=== PATIENT | male | born 1955 | race Caucasian/White ===

== ENCOUNTER 2019-07-18 09:26 | Inpatient (IN) ==
[2019-07-18] MEDS ORDERED: ETOMIDATE 20 MG/10 ML VIAL IV STA (09:29)
[2019-07-18] MEDS ORDERED: ROCURONIUM 100 MG/10 ML VIAL IV STA (09:30)
[2019-07-18] MEDS ORDERED: PROPOFOL 1,000 MG/100 ML BOTTLE IV ONE (09:32)
[2019-07-18] MEDS ORDERED: SODIUM CHLORIDE 0.9% IV ONE (09:34)
[2019-07-18] MEDS ORDERED: HYDROCORTISONE 100 MG VIAL IV STA (09:36)
[2019-07-18] MEDS: PIPERACILLIN/TAZOBACTAM 3,375 MG in SODIUM CHLORIDE 0.9% 100 ML IV SCH ×2 (09:46→18:22)
[2019-07-18 09:48] LABS: Amorphous Crystals,Urine Occasional /HPF (Few); Apearance,Urine CLEAR (Clear); Bacteria,Urine Occasional /HPF (Few); Bilirubin,Urine Negative (Negative); Blood, Urine Negative (Negative); Glucose,Urine (UA) Negative (Negative); Ketones,Urine Negative (Negative); Nitrite,Urine Negative (Negative); Protein,Urine 100 MG/DL; RBC,Urine 1 /HPF (0-4); Squamous Epithelial Cell,Urine Occasional /HPF (0-10); Urine Color Straw (Yellow); Urine Specific Gravity 1.006 (1.001-1.035); Urine Urobilinogen < 2.0 EU/DL (0.2-1.0); WBC,Urine 1 /HPF (0-6)
[2019-07-18 09:52] LABS: ABG Base Excess -5.1 MMOL/L (-2.5-2.5); ABG Oxygen Saturation 87.2 % (95-100); ABG PCO2 68.3 MM HG (35-48); ABG PO2 66.3 MM HG (80-95)
[2019-07-18] MEDS: PROPOFOL 1,000 MG/100 ML BOTTLE IV SCH ×4 (09:52→21:55)
[2019-07-18 09:59] LABS: ABG PH 7.178 (7.35-7.45)
[2019-07-18] MEDS ORDERED: SODIUM BICARBONATE 50 MEQ/50 ML VIAL IV STA (10:00)
[2019-07-18 10:01] LABS: PT Patient Result 10.7 SECS (9.6-12.2); Partial Thromboplastin Time 23.1 SECS (20.8-36.0)
[2019-07-18 10:13] LABS: Alanine Aminotransferase 55 U/L (16-61); Albumin 3.4 G/DL (3.4-5.0); Alkaline Phosphatase 74 U/L (45-117); Aspartate Amino Transferase 27 U/L (0-37); Bilirubin,Total < 0.39 MG/DL (0.2-1.0); Blood Urea Nitrogen 25 MG/DL (7-18); Calcium 8.6 MG/DL (8.5-10.1); Estimated Glom Filtration Rate 124 ML/MIN; Glucose 275 MG/DL (74-106); Osmolality,Calculated 303.6 MOS/KG (273-304); Total Protein 7.2 G/DL (6.4-8.3)
[2019-07-18 10:17] LABS: Basophils # 0.1 10*3/uL (0.0-0.2); Basophils % 0.5 % (0.0-0.8); Eosinophils # 0.1 10*3/uL (0.0-0.87); Eosinophils % 0.6 % (0.00-10.9); Hematocrit 44.8 VOL% (42.0-52.0); Immature Granulocytes % 3.6 %; Immature Granulocytes Absolute 0.66 #; Lymphocytes # 2.5 10*3/uL (1.4-4.0); Lymphocytes % 13.2 % (21.2-54.2); Mean Corpuscular HGB Conc 30.1 GM/DL (32-36); Mean Platelet Volume 10.9 FL (9.6-12.0); Monocytes % 9.9 % (1.7-12.7); NRBC # 0.11 10*3/uL; Neutrophils % 72.2 % (38.7-73.9); Platelet Count 350 T/CUMM (130-400); Red Blood Count 4.35 MC/CUMM (3.8-5.5); Red Cell Distribution Width 15.2 % (9.3-17.3); White Blood Count 18.5 T/CUMM (4-12)
[2019-07-18 10:21] LABS: Hemoglobin 13.5 GM/DL (14.0-18.0)
[2019-07-18 10:24] LABS: Atypical Lymphocytes Few; Band Neutrophils 2 % (0-10); Eosinophils 1 % (0-10); Lymphocytes 14 % (20-55); Nucleated Red Blood Cells 1 (0-5); Segmented Neutrophils 72 % (50-85); Total Cells Counted 100
[2019-07-18 10:25] LABS: Macrocytosis Slight; Platelet Estimate Normal
[2019-07-18] MEDS ORDERED: DOCUSATE SODIUM 100 MG CAPSULE PO PRN (10:32)
[2019-07-18] MEDS ORDERED: ONDANSETRON 4 MG/2 ML VIAL IV PRN (10:32)
[2019-07-18] MEDS ORDERED: ACETAMINOPHEN 325 MG TABLET PO PRN (10:32)
[2019-07-18] MEDS ORDERED: ALBUTEROL/IPRATROPIUM 3 ML NEB RESP TX PRN (10:32)
[2019-07-18] MEDS ORDERED: ALBUTEROL 2.5 MG/3 ML NEB RESP TX PRN (10:32)
[2019-07-18] MEDS ORDERED: GLUCAGON 1 MG VIAL IM PRN (10:40)
[2019-07-18] MEDS ORDERED: DEXTROSE 50% 25 GM/50 ML VIAL IV PRN (10:40)
[2019-07-18] MEDS ORDERED: ETOMIDATE 20 MG/10 ML VIAL IV ONE (10:48)
[2019-07-18] MEDS ORDERED: ROCURONIUM 100 MG/10 ML VIAL IV ONE (10:48)
[2019-07-18] MEDS: FUROSEMIDE 40 MG/4 ML VIAL IV SCH ×2 (11:04→22:54)
[2019-07-18 11:08] LABS: Risk Ratio 6.25; VLDL CHOLESTEROL 44.6 MG/DL
[2019-07-18] MEDS: NITROGLYCERIN 2% OINT 1 INCH/GM PACK TOP SCH ×2 (13:42→18:22)
[2019-07-18] MEDS: INSULIN LISPRO 100 UNIT/ML SUBCUT SCH ×2 (13:51→18:22)
[2019-07-18] MEDS: methylPREDNISolone SOD SUC 40 MG/1 ML VIAL IV SCH ×2 (15:45→20:10)
[2019-07-18 17:08] LABS: ABG Base Excess 6.4 MMOL/L (-2.5-2.5); ABG HCO3 30.3 MMOL/L (20-26); ABG Oxygen Saturation 98.2 % (95-100); ABG PCO2 40.7 MM HG (35-48); ABG PH 7.482 (7.35-7.45); ABG TCO2 26.3 MMOL/L (23-27); Allen Test Positive; Pt O2 Delivery Device Ventilator
[2019-07-18] MEDS: SOTALOL 80 MG TABLET PO SCH (20:10)
[2019-07-18] MEDS: APIXABAN 5 MG TABLET PO SCH (20:10)
[2019-07-18] MEDS: carvediloL 25 MG TABLET PO SCH (20:10)
[2019-07-18] MEDS: INSULIN GLARGINE 100 UNIT/ML SUBCUT SCH (20:12)
[2019-07-19] MEDS: INSULIN LISPRO 100 UNIT/ML SUBCUT SCH ×4 (00:05→18:28)
[2019-07-19] MEDS: NITROGLYCERIN 2% OINT 1 INCH/GM PACK TOP SCH ×4 (00:06→18:12)
[2019-07-19] MEDS: PROPOFOL 1,000 MG/100 ML BOTTLE IV SCH ×10 (00:11→22:22)
[2019-07-19] MEDS: MORPHINE 4 MG/1 ML VIAL IV PRN (00:40)
[2019-07-19] MEDS ORDERED: hydrALAZINE 20 MG/1 ML VIAL IV PRN (01:17)
[2019-07-19] MEDS: methylPREDNISolone SOD SUC 40 MG/1 ML VIAL IV SCH ×4 (02:15→20:21)
[2019-07-19] MEDS: PIPERACILLIN/TAZOBACTAM 3,375 MG in SODIUM CHLORIDE 0.9% 100 ML IV SCH ×3 (02:15→18:28)
[2019-07-19 02:56] LABS: Calcium 8.9 MG/DL (8.5-10.1); Osmolality,Calculated 300.6 MOS/KG (273-304)
[2019-07-19 03:21] LABS: Prealbumin 25.3 MG/DL (20-40)
[2019-07-19 03:24] LABS: Basophils % 0.1 % (0.0-0.8); Hematocrit 42.5 VOL% (42.0-52.0); Hemoglobin 13.5 GM/DL (14.0-18.0); Immature Granulocytes % 1.3 %; Immature Granulocytes Absolute 0.22 #; Lymphocytes # 0.5 10*3/uL (1.4-4.0); Lymphocytes % 2.8 % (21.2-54.2); Mean Corpuscular HGB Conc 31.8 GM/DL (32-36); Mean Corpuscular Volume 97.5 FL (87-102); Mean Platelet Volume 10.7 FL (9.6-12.0); Monocytes % 4.3 % (1.7-12.7); Neutrophils % 91.5 % (38.7-73.9); Platelet Count 337 T/CUMM (130-400); Red Blood Count 4.36 MC/CUMM (3.8-5.5); White Blood Count 16.6 T/CUMM (4-12)
[2019-07-19 03:49] LABS: Hypochromasia 1+; Lymphocytes 3 % (20-55); Platelet Estimate Adequate; Segmented Neutrophils 93 % (50-85); Total Cells Counted 100
[2019-07-19 03:50] LABS: Macrocytosis Slight
[2019-07-19 04:11] LABS: ABG Base Excess 6.4 MMOL/L (-2.5-2.5); ABG HCO3 30.2 MMOL/L (20-26); ABG Oxygen Saturation 99.5 % (95-100); ABG PCO2 27.4 MM HG (35-48); ABG TCO2 23.4 MMOL/L (23-27); Allen Test Positive; Pt O2 Delivery Device Ventilator
[2019-07-19 04:28] LABS: ABG PH 7.604 (7.35-7.45)
[2019-07-19] MEDS: POTASSIUM CHLORIDE RIDER 10 MEQ in PREMIX 1 EACH IV PRN ×3 (04:35→06:34)
[2019-07-19 07:33] LABS: ABG Base Excess 2.9 MMOL/L (-2.5-2.5); ABG HCO3 25.5 MMOL/L (20-26); ABG Oxygen Saturation 97.3 % (95-100); ABG PCO2 32.3 MM HG (35-48); ABG PH 7.515 (7.35-7.45); ABG PO2 100.1 MM HG (80-95); ABG TCO2 26.5 MMOL/L (23-27); Allen Test Positive; Pt O2 Delivery Device Ventilator
[2019-07-19] MEDS: amLODIPine 10 MG TABLET PO SCH (08:37)
[2019-07-19] MEDS: APIXABAN 5 MG TABLET PO SCH (08:37)
[2019-07-19] MEDS: LIOTHYRONINE 25 MCG TABLET PO SCH (08:37)
[2019-07-19] MEDS: LEVOTHYROXINE 100 MCG TABLET PO SCH (08:37)
[2019-07-19] MEDS: FENOFIBRATE 145 MG TABLET PO SCH (08:37)
[2019-07-19] MEDS: ATORVASTATIN 20 MG TABLET PO SCH (08:37)
[2019-07-19] MEDS: PANTOPRAZOLE 40 MG TABLET PO SCH (08:38)
[2019-07-19] MEDS: LISINOPRIL 20 MG TABLET PO SCH (08:38)
[2019-07-19] MEDS: carvediloL 25 MG TABLET PO SCH ×2 (08:38→20:20)
[2019-07-19] MEDS: SOTALOL 80 MG TABLET PO SCH ×2 (08:39→20:20)
[2019-07-19] MEDS ORDERED: ASPIRIN EC 81 MG TABLET PO SCH (09:00)
[2019-07-19] MEDS: FUROSEMIDE 40 MG/4 ML VIAL IV SCH ×2 (11:38→22:20)
[2019-07-19 15:10] LABS: Hematocrit 36.1 VOL% (42.0-52.0); Hemoglobin 11.3 GM/DL (14.0-18.0)
[2019-07-19] MEDS: INSULIN GLARGINE 100 UNIT/ML SUBCUT SCH (20:20)
[2019-07-19 22:28] LABS: Hematocrit 31.8 VOL% (42.0-52.0); Hemoglobin 10.1 GM/DL (14.0-18.0)
[2019-07-20] MEDS: INSULIN LISPRO 100 UNIT/ML SUBCUT SCH ×4 (00:24→18:20)
[2019-07-20] MEDS: NITROGLYCERIN 2% OINT 1 INCH/GM PACK TOP SCH ×2 (00:24→06:19)
[2019-07-20] MEDS: MORPHINE 4 MG/1 ML VIAL IV PRN (02:40)
[2019-07-20] MEDS: PROPOFOL 1,000 MG/100 ML BOTTLE IV SCH ×8 (02:42→21:58)
[2019-07-20] MEDS: methylPREDNISolone SOD SUC 40 MG/1 ML VIAL IV SCH ×4 (02:58→20:29)
[2019-07-20] MEDS: PIPERACILLIN/TAZOBACTAM 3,375 MG in SODIUM CHLORIDE 0.9% 100 ML IV SCH ×3 (03:01→18:19)
[2019-07-20 03:38] LABS: ABG Base Excess 2.9 MMOL/L (-2.5-2.5); ABG HCO3 25.4 MMOL/L (20-26); ABG Oxygen Saturation 98.3 % (95-100); ABG PCO2 31.6 MM HG (35-48); ABG PH 7.523 (7.35-7.45); ABG PO2 212.5 MM HG (80-95); ABG TCO2 26.4 MMOL/L (23-27); Allen Test Positive; Pt O2 Delivery Device Ventilator
[2019-07-20 06:18] LABS: Hematocrit 32.7 VOL% (42.0-52.0); Hemoglobin 10.2 GM/DL (14.0-18.0)
[2019-07-20] MEDS ORDERED: LACTATED RINGERS 1,000 ML IV SCH (08:00)
[2019-07-20] MEDS ORDERED: NITROGLYCERIN 2% OINT 1 INCH/GM PACK TOP PRN (08:20)
[2019-07-20] MEDS ORDERED: FUROSEMIDE 40 MG/4 ML VIAL IV ONE (08:38)
[2019-07-20] MEDS: LEVOTHYROXINE 100 MCG VIAL IV SCH (09:13)
[2019-07-20 10:24] LABS: Basophils % 0.1 % (0.0-0.8); Hematocrit 33.9 VOL% (42.0-52.0); Hemoglobin 10.6 GM/DL (14.0-18.0); Immature Granulocytes Absolute 0.16 #; Lymphocytes # 0.4 10*3/uL (1.4-4.0); Lymphocytes % 2.5 % (21.2-54.2); Mean Corpuscular HGB Conc 31.3 GM/DL (32-36); Mean Corpuscular Volume 99.4 FL (87-102); Mean Platelet Volume 10.8 FL (9.6-12.0); Neutrophils % 88.4 % (38.7-73.9); Platelet Count 252 T/CUMM (130-400); Red Blood Count 3.41 MC/CUMM (3.8-5.5); Red Cell Distribution Width 15.2 % (9.3-17.3); White Blood Count 16.4 T/CUMM (4-12)
[2019-07-20] MEDS: ATORVASTATIN 20 MG TABLET PO SCH (10:44)
[2019-07-20] MEDS: MULTIVITAMIN LIQUID (CENTRUM) 60 ML BOTTLE PO SCH (10:44)
[2019-07-20] MEDS: LIOTHYRONINE 25 MCG TABLET PO SCH (10:44)
[2019-07-20] MEDS: amLODIPine 10 MG TABLET PO SCH (10:45)
[2019-07-20] MEDS: LISINOPRIL 20 MG TABLET PO SCH (10:45)
[2019-07-20] MEDS: PANTOPRAZOLE 40 MG TABLET PO SCH (10:45)
[2019-07-20] MEDS: FENOFIBRATE 145 MG TABLET PO SCH (10:45)
[2019-07-20 10:49] LABS: Calcium 8.1 MG/DL (8.5-10.1); Osmolality,Calculated 303.7 MOS/KG (273-304)
[2019-07-20 11:09] LABS: Ovalocytes Slight; Platelet Estimate Normal; Polychromasia Slight; Segmented Neutrophils 91 % (50-85); Tear Drop Cells Slight; Total Cells Counted 100
[2019-07-20] MEDS: FUROSEMIDE 40 MG/4 ML VIAL IV SCH ×2 (11:13→22:48)
[2019-07-20] MEDS: carvediloL 25 MG TABLET PO SCH ×2 (11:28→20:29)
[2019-07-20] MEDS: POTASSIUM CHLORIDE RIDER 10 MEQ in PREMIX 1 EACH IV PRN ×8 (11:29→22:47)
[2019-07-20] MEDS: INSULIN GLARGINE 100 UNIT/ML SUBCUT SCH (20:30)
[2019-07-21] MEDS: INSULIN LISPRO 100 UNIT/ML SUBCUT SCH ×4 (00:31→17:50)
[2019-07-21] MEDS: POTASSIUM CHLORIDE RIDER 10 MEQ in PREMIX 1 EACH IV PRN ×5 (00:32→17:18)
[2019-07-21] MEDS: PROPOFOL 1,000 MG/100 ML BOTTLE IV SCH ×8 (00:49→22:25)
[2019-07-21] MEDS: methylPREDNISolone SOD SUC 40 MG/1 ML VIAL IV SCH ×3 (02:36→21:17)
[2019-07-21] MEDS: PIPERACILLIN/TAZOBACTAM 3,375 MG in SODIUM CHLORIDE 0.9% 100 ML IV SCH ×3 (02:38→18:25)
[2019-07-21 04:29] LABS: ABG HCO3 28.8 MMOL/L (20-26); ABG PCO2 35.5 MM HG (35-48); ABG PH 7.506 (7.35-7.45); ABG PO2 62.6 MM HG (80-95); ABG TCO2 24.7 MMOL/L (23-27); Pt O2 Delivery Device Ventilator
[2019-07-21 06:12] LABS: Basophils % 0.1 % (0.0-0.8); Hematocrit 37.5 VOL% (42.0-52.0); Hemoglobin 11.5 GM/DL (14.0-18.0); Immature Granulocytes % 1.2 %; Immature Granulocytes Absolute 0.18 #; Lymphocytes # 0.5 10*3/uL (1.4-4.0); Lymphocytes % 3.2 % (21.2-54.2); Mean Corpuscular HGB Conc 30.7 GM/DL (32-36); Mean Corpuscular Volume 100.8 FL (87-102); Mean Platelet Volume 11.2 FL (9.6-12.0); Monocytes % 8.3 % (1.7-12.7); Neutrophils % 87.2 % (38.7-73.9); Platelet Count 242 T/CUMM (130-400); Red Blood Count 3.72 MC/CUMM (3.8-5.5); White Blood Count 14.6 T/CUMM (4-12)
[2019-07-21] MEDS: LEVOTHYROXINE 100 MCG VIAL IV SCH (06:16)
[2019-07-21 06:42] LABS: Calcium 8.3 MG/DL (8.5-10.1); Osmolality,Calculated 302.7 MOS/KG (273-304)
[2019-07-21 06:55] LABS: Lymphocytes 2 % (20-55); Segmented Neutrophils 90 % (50-85); Total Cells Counted 100
[2019-07-21 06:56] LABS: Anisocytosis Slight; Macrocytosis Slight; Platelet Estimate Normal
[2019-07-21 06:57] LABS: Polychromasia Slight; Stomatocytes Slight; Tear Drop Cells Few
[2019-07-21] MEDS: amLODIPine 10 MG TABLET PO SCH (10:01)
[2019-07-21] MEDS: POTASSIUM CHLORIDE 20 MEQ/15 ML UDCUP PO SCH ×2 (10:01→21:17)
[2019-07-21] MEDS: carvediloL 25 MG TABLET PO SCH ×3 (10:01→21:17)
[2019-07-21] MEDS: LIOTHYRONINE 25 MCG TABLET PO SCH (10:01)
[2019-07-21] MEDS: ATORVASTATIN 20 MG TABLET PO SCH (10:01)
[2019-07-21] MEDS: MULTIVITAMIN LIQUID (CENTRUM) 60 ML BOTTLE PO SCH (10:01)
[2019-07-21] MEDS: LISINOPRIL 20 MG TABLET PO SCH (10:02)
[2019-07-21] MEDS: FENOFIBRATE 145 MG TABLET PO SCH (10:02)
[2019-07-21] MEDS: PANTOPRAZOLE 40 MG VIAL IV SCH (11:59)
[2019-07-21] MEDS: FUROSEMIDE 40 MG/4 ML VIAL IV SCH (12:00)
[2019-07-21 12:15] LABS: Allen Test Positive; Pt O2 Delivery Device Ventilator
[2019-07-21 12:19] LABS: ABG Base Excess 4.5 MMOL/L (-2.5-2.5); ABG HCO3 28.2 MMOL/L (20-26); ABG Oxygen Saturation 88.6 % (95-100); ABG PCO2 36.9 MM HG (35-48); ABG PH 7.487 (7.35-7.45); ABG PO2 52.8 MM HG (80-95); ABG TCO2 24.9 MMOL/L (23-27)
[2019-07-21] MEDS ORDERED: AMIODARONE INJ 450 MG in DEXTROSE 5% 241 ML IV SCH (18:30)
[2019-07-21] MEDS: DORNASE ALFA 2.5 MG/2.5 ML VIAL RESP TX SCH (19:46)
[2019-07-21] MEDS: INSULIN GLARGINE 100 UNIT/ML SUBCUT SCH (21:17)
[2019-07-21] MEDS: GLIMEPIRIDE 4 MG TABLET PO SCH (21:17)
[2019-07-22] MEDS: INSULIN LISPRO 100 UNIT/ML SUBCUT SCH ×4 (00:28→18:25)
[2019-07-22] MEDS: FUROSEMIDE 40 MG/4 ML VIAL IV SCH ×2 (00:29→10:47)
[2019-07-22] MEDS: PROPOFOL 1,000 MG/100 ML BOTTLE IV SCH ×6 (00:32→17:41)
[2019-07-22] MEDS: PIPERACILLIN/TAZOBACTAM 3,375 MG in SODIUM CHLORIDE 0.9% 100 ML IV SCH ×3 (02:44→17:41)
[2019-07-22] MEDS: AMIODARONE INJ 450 MG in DEXTROSE 5% 241 ML IV SCH ×2 (03:57→16:49)
[2019-07-22 04:33] LABS: ABG Base Excess 4.1 MMOL/L (-2.5-2.5); ABG HCO3 27.8 MMOL/L (20-26); ABG Oxygen Saturation 95.3 % (95-100); ABG PCO2 38.4 MM HG (35-48); ABG PH 7.478 (7.35-7.45); ABG PO2 79.7 MM HG (80-95); Allen Test Positive; Pt O2 Delivery Device Ventilator
[2019-07-22 05:38] LABS: Basophils % 0.1 % (0.0-0.8); Hematocrit 35.4 VOL% (42.0-52.0); Hemoglobin 11.3 GM/DL (14.0-18.0); Immature Granulocytes % 1.8 %; Immature Granulocytes Absolute 0.21 #; Lymphocytes # 0.4 10*3/uL (1.4-4.0); Mean Corpuscular HGB Conc 31.9 GM/DL (32-36); Mean Corpuscular Volume 97.5 FL (87-102); Mean Platelet Volume 11.3 FL (9.6-12.0); Monocytes % 8.3 % (1.7-12.7); Neutrophils % 86.8 % (38.7-73.9); Platelet Count 264 T/CUMM (130-400); Red Blood Count 3.63 MC/CUMM (3.8-5.5); Red Cell Distribution Width 14.6 % (9.3-17.3)
[2019-07-22 05:48] LABS: Osmolality,Calculated 307.6 MOS/KG (273-304)
[2019-07-22 06:13] LABS: Anisocytosis 1+; Lymphocytes 4 % (20-55); Platelet Estimate Adequate; Segmented Neutrophils 88 % (50-85); Total Cells Counted 100
[2019-07-22] MEDS: LEVOTHYROXINE 100 MCG VIAL IV SCH (06:23)
[2019-07-22] MEDS: POTASSIUM CHLORIDE RIDER 10 MEQ in PREMIX 1 EACH IV PRN ×3 (07:00→09:00)
[2019-07-22] MEDS: DORNASE ALFA 2.5 MG/2.5 ML VIAL RESP TX SCH ×2 (08:11→19:34)
[2019-07-22] MEDS: LIOTHYRONINE 25 MCG TABLET PO SCH (10:06)
[2019-07-22] MEDS: GLIMEPIRIDE 4 MG TABLET PO SCH ×2 (10:06→21:49)
[2019-07-22] MEDS: carvediloL 25 MG TABLET PO SCH ×2 (10:06→21:49)
[2019-07-22] MEDS: MULTIVITAMIN LIQUID (CENTRUM) 60 ML BOTTLE PO SCH (10:06)
[2019-07-22] MEDS: POTASSIUM CHLORIDE 20 MEQ/15 ML UDCUP PO SCH ×2 (10:07→21:50)
[2019-07-22] MEDS: FENOFIBRATE 145 MG TABLET PO SCH (10:07)
[2019-07-22] MEDS: amLODIPine 10 MG TABLET PO SCH (10:07)
[2019-07-22] MEDS: ATORVASTATIN 20 MG TABLET PO SCH (10:07)
[2019-07-22] MEDS: PANTOPRAZOLE 40 MG VIAL IV SCH (10:07)
[2019-07-22] MEDS: LISINOPRIL 20 MG TABLET PO SCH (10:07)
[2019-07-22] MEDS: methylPREDNISolone SOD SUC 40 MG/1 ML VIAL IV SCH ×2 (10:08→21:50)
[2019-07-22] MEDS: metOLazone 5 MG TABLET PO SCH (10:47)
[2019-07-22] MEDS: SPIRONOLACTONE 25 MG TABLET PO SCH (10:47)
[2019-07-22] MEDS: metFORMIN 500 MG TABLET PO SCH (17:41)
[2019-07-22] MEDS: ALBUTEROL/IPRATROPIUM 3 ML NEB RESP TX SCH (19:34)
[2019-07-22] MEDS: APIXABAN 5 MG TABLET PO SCH (21:49)
[2019-07-22] MEDS: INSULIN GLARGINE 100 UNIT/ML SUBCUT SCH (21:50)
[2019-07-23] MEDS: FUROSEMIDE 40 MG/4 ML VIAL IV SCH ×3 (00:21→23:28)
[2019-07-23] MEDS: ALBUTEROL/IPRATROPIUM 3 ML NEB RESP TX SCH ×4 (00:27→18:57)
[2019-07-23] MEDS: INSULIN LISPRO 100 UNIT/ML SUBCUT SCH ×5 (00:38→20:34)
[2019-07-23] MEDS: PROPOFOL 1,000 MG/100 ML BOTTLE IV SCH ×2 (02:08→10:10)
[2019-07-23] MEDS: PIPERACILLIN/TAZOBACTAM 3,375 MG in SODIUM CHLORIDE 0.9% 100 ML IV SCH ×3 (02:37→17:12)
[2019-07-23 04:02] LABS: ABG Base Excess 6.2 MMOL/L (-2.5-2.5); ABG Oxygen Saturation 95.7 % (95-100); ABG PCO2 40.1 MM HG (35-48); ABG PH 7.484 (7.35-7.45); ABG PO2 77.9 MM HG (80-95); ABG TCO2 26.4 MMOL/L (23-27); Allen Test Positive; Pt O2 Delivery Device Ventilator
[2019-07-23 04:57] LABS: Basophils % 0.2 % (0.0-0.8); Hematocrit 35.2 VOL% (42.0-52.0); Hemoglobin 11.2 GM/DL (14.0-18.0); Immature Granulocytes % 2.6 %; Immature Granulocytes Absolute 0.32 #; Lymphocytes # 0.4 10*3/uL (1.4-4.0); Lymphocytes % 3.4 % (21.2-54.2); Mean Corpuscular HGB Conc 31.8 GM/DL (32-36); Mean Corpuscular Volume 97.2 FL (87-102); Mean Platelet Volume 10.9 FL (9.6-12.0); Monocytes % 8.6 % (1.7-12.7); NRBC # 0.04 10*3/uL; Neutrophils % 85.2 % (38.7-73.9); Platelet Count 254 T/CUMM (130-400); Red Blood Count 3.62 MC/CUMM (3.8-5.5); Red Cell Distribution Width 14.5 % (9.3-17.3); White Blood Count 12.5 T/CUMM (4-12)
[2019-07-23 05:20] LABS: Calcium 8.4 MG/DL (8.5-10.1)
[2019-07-23] MEDS: POTASSIUM CHLORIDE RIDER 10 MEQ in PREMIX 1 EACH IV PRN ×2 (06:23→07:37)
[2019-07-23] MEDS: LEVOTHYROXINE 100 MCG VIAL IV SCH (06:24)
[2019-07-23 07:03] LABS: Hypochromasia 1+; Lymphocytes 6 % (20-55); Platelet Estimate Adequate; Segmented Neutrophils 83 % (50-85); Total Cells Counted 100
[2019-07-23] MEDS: DORNASE ALFA 2.5 MG/2.5 ML VIAL RESP TX SCH ×2 (07:39→18:57)
[2019-07-23] MEDS: AMIODARONE INJ 450 MG in DEXTROSE 5% 241 ML IV SCH ×2 (07:50→23:26)
[2019-07-23] MEDS: carvediloL 25 MG TABLET PO SCH ×2 (09:52→20:34)
[2019-07-23] MEDS: metFORMIN 500 MG TABLET PO SCH ×2 (10:00→17:12)
[2019-07-23] MEDS: GLIMEPIRIDE 4 MG TABLET PO SCH ×2 (10:00→20:33)
[2019-07-23] MEDS: LISINOPRIL 20 MG TABLET PO SCH (10:01)
[2019-07-23] MEDS: SPIRONOLACTONE 25 MG TABLET PO SCH (10:01)
[2019-07-23] MEDS: ATORVASTATIN 20 MG TABLET PO SCH (10:01)
[2019-07-23] MEDS: APIXABAN 5 MG TABLET PO SCH ×2 (10:02→20:33)
[2019-07-23] MEDS: metOLazone 5 MG TABLET PO SCH (10:02)
[2019-07-23] MEDS: FENOFIBRATE 145 MG TABLET PO SCH (10:02)
[2019-07-23] MEDS: LIOTHYRONINE 25 MCG TABLET PO SCH (10:02)
[2019-07-23] MEDS: amLODIPine 10 MG TABLET PO SCH (10:02)
[2019-07-23] MEDS: POTASSIUM CHLORIDE 20 MEQ/15 ML UDCUP PO SCH ×2 (10:03→20:34)
[2019-07-23] MEDS: MULTIVITAMIN LIQUID (CENTRUM) 60 ML BOTTLE PO SCH (10:13)
[2019-07-23] MEDS: PANTOPRAZOLE 40 MG VIAL IV SCH (10:14)
[2019-07-23] MEDS: methylPREDNISolone SOD SUC 40 MG/1 ML VIAL IV SCH ×2 (10:18→23:26)
[2019-07-23 11:14] LABS: ABG Base Excess 7.7 MMOL/L (-2.5-2.5); ABG HCO3 31.4 MMOL/L (20-26); ABG Oxygen Saturation 93.1 % (95-100); ABG PCO2 41.2 MM HG (35-48); ABG PH 7.495 (7.35-7.45); ABG PO2 62.9 MM HG (80-95); ABG TCO2 27.8 MMOL/L (23-27); Pt O2 Delivery Device Ventilator
[2019-07-23] MEDS: INSULIN GLARGINE 100 UNIT/ML SUBCUT SCH (20:34)
[2019-07-24] MEDS: ALBUTEROL/IPRATROPIUM 3 ML NEB RESP TX SCH ×3 (01:25→11:31)
[2019-07-24] MEDS: PIPERACILLIN/TAZOBACTAM 3,375 MG in SODIUM CHLORIDE 0.9% 100 ML IV SCH (05:44)
[2019-07-24] MEDS: LEVOTHYROXINE 100 MCG VIAL IV SCH (06:00)
[2019-07-24 07:04] LABS: Basophils % 0.1 % (0.0-0.8); Hematocrit 38.6 VOL% (42.0-52.0); Hemoglobin 12.1 GM/DL (14.0-18.0); Immature Granulocytes % 2.2 %; Immature Granulocytes Absolute 0.36 #; Lymphocytes # 0.5 10*3/uL (1.4-4.0); Lymphocytes % 2.8 % (21.2-54.2); Mean Corpuscular HGB Conc 31.3 GM/DL (32-36); Mean Platelet Volume 10.6 FL (9.6-12.0); Monocytes % 8.2 % (1.7-12.7); NRBC # 0.05 10*3/uL; Neutrophils % 86.7 % (38.7-73.9); Platelet Count 289 T/CUMM (130-400); Red Blood Count 3.94 MC/CUMM (3.8-5.5); Red Cell Distribution Width 14.5 % (9.3-17.3); White Blood Count 16.4 T/CUMM (4-12)
[2019-07-24 07:23] LABS: Lymphocytes 6 % (20-55); Nucleated Red Blood Cells 1 (0-5); Segmented Neutrophils 85 % (50-85); Total Cells Counted 100
[2019-07-24 07:25] LABS: Platelet Estimate Adequate
[2019-07-24 07:26] LABS: Hypochromasia 1+
[2019-07-24] MEDS: SOTALOL 80 MG TABLET PO SCH ×2 (07:36→08:25)
[2019-07-24] MEDS: carvediloL 25 MG TABLET PO SCH ×3 (07:36→23:18)
[2019-07-24] MEDS: DORNASE ALFA 2.5 MG/2.5 ML VIAL RESP TX SCH ×2 (07:43→19:15)
[2019-07-24] MEDS: metOLazone 5 MG TABLET PO SCH (08:13)
[2019-07-24] MEDS: FENOFIBRATE 145 MG TABLET PO SCH (08:13)
[2019-07-24] MEDS: GLIMEPIRIDE 4 MG TABLET PO SCH ×2 (08:13→23:17)
[2019-07-24] MEDS: INSULIN LISPRO 100 UNIT/ML SUBCUT SCH ×4 (08:13→23:18)
[2019-07-24] MEDS: LISINOPRIL 20 MG TABLET PO SCH (08:14)
[2019-07-24] MEDS: LIOTHYRONINE 25 MCG TABLET PO SCH (08:14)
[2019-07-24] MEDS: metFORMIN 500 MG TABLET PO SCH ×2 (08:15→17:09)
[2019-07-24] MEDS: SPIRONOLACTONE 25 MG TABLET PO SCH (08:15)
[2019-07-24] MEDS: amLODIPine 10 MG TABLET PO SCH (08:16)
[2019-07-24] MEDS: APIXABAN 5 MG TABLET PO SCH ×2 (08:16→23:17)
[2019-07-24] MEDS: POTASSIUM CHLORIDE 20 MEQ/15 ML UDCUP PO SCH ×2 (08:17→23:18)
[2019-07-24] MEDS: PANTOPRAZOLE 40 MG VIAL IV SCH (08:17)
[2019-07-24] MEDS: MULTIVITAMIN LIQUID (CENTRUM) 60 ML BOTTLE PO SCH (08:25)
[2019-07-24] MEDS: ATORVASTATIN 20 MG TABLET PO SCH (08:26)
[2019-07-24] MEDS: AMIODARONE INJ 450 MG in DEXTROSE 5% 241 ML IV SCH ×3 (09:00→16:46)
[2019-07-24] MEDS: SULFAMETHOX/TRIMETHOPRIM 800-160 MG TABLET PO SCH ×2 (12:33→23:17)
[2019-07-24] MEDS: FUROSEMIDE 40 MG/4 ML VIAL IV SCH ×2 (12:34→23:27)
[2019-07-24] MEDS: INSULIN GLARGINE 100 UNIT/ML SUBCUT SCH (23:19)
[2019-07-25 05:57] LABS: Basophils # 0.1 10*3/uL (0.0-0.2); Basophils % 0.3 % (0.0-0.8); Eosinophils # 0.1 10*3/uL (0.0-0.87); Eosinophils % 0.7 % (0.00-10.9); Hematocrit 43.7 VOL% (42.0-52.0); Hemoglobin 13.6 GM/DL (14.0-18.0); Immature Granulocytes % 3.5 %; Immature Granulocytes Absolute 0.66 #; Lymphocytes # 1.1 10*3/uL (1.4-4.0); Lymphocytes % 5.7 % (21.2-54.2); Mean Corpuscular HGB Conc 31.1 GM/DL (32-36); Mean Corpuscular Volume 97.8 FL (87-102); Mean Platelet Volume 11.1 FL (9.6-12.0); Monocytes % 12.5 % (1.7-12.7); NRBC # 0.04 10*3/uL; Neutrophils % 77.3 % (38.7-73.9); Platelet Count 343 T/CUMM (130-400); Red Blood Count 4.47 MC/CUMM (3.8-5.5); Red Cell Distribution Width 14.6 % (9.3-17.3)
[2019-07-25 06:15] LABS: Calcium 9.4 MG/DL (8.5-10.1); Osmolality,Calculated 298.1 MOS/KG (273-304)
[2019-07-25 06:27] LABS: Eosinophils 1 % (0-10); Hypochromasia 1+; Lymphocytes 11 % (20-55); Platelet Estimate Adequate; Segmented Neutrophils 76 % (50-85); Total Cells Counted 100
[2019-07-25] MEDS: AMIODARONE INJ 450 MG in DEXTROSE 5% 241 ML IV SCH ×3 (07:33→22:47)
[2019-07-25] MEDS: DORNASE ALFA 2.5 MG/2.5 ML VIAL RESP TX SCH ×2 (08:16→19:42)
[2019-07-25] MEDS: INSULIN LISPRO 100 UNIT/ML SUBCUT SCH ×4 (09:28→21:08)
[2019-07-25] MEDS: metOLazone 5 MG TABLET PO SCH (09:29)
[2019-07-25] MEDS: metFORMIN 500 MG TABLET PO SCH ×2 (09:29→16:12)
[2019-07-25] MEDS: ATORVASTATIN 20 MG TABLET PO SCH (09:29)
[2019-07-25] MEDS: FENOFIBRATE 145 MG TABLET PO SCH (09:29)
[2019-07-25] MEDS: SPIRONOLACTONE 25 MG TABLET PO SCH (09:29)
[2019-07-25] MEDS: POTASSIUM CHLORIDE 20 MEQ/15 ML UDCUP PO SCH ×2 (09:29→21:08)
[2019-07-25] MEDS: GLIMEPIRIDE 4 MG TABLET PO SCH ×2 (09:29→21:07)
[2019-07-25] MEDS: LISINOPRIL 20 MG TABLET PO SCH (09:29)
[2019-07-25] MEDS: carvediloL 25 MG TABLET PO SCH ×2 (09:29→21:08)
[2019-07-25] MEDS: SULFAMETHOX/TRIMETHOPRIM 800-160 MG TABLET PO SCH ×2 (09:30→21:07)
[2019-07-25] MEDS: LEVOTHYROXINE 100 MCG TABLET PO SCH (09:30)
[2019-07-25] MEDS: PANTOPRAZOLE 40 MG TABLET PO SCH (09:30)
[2019-07-25] MEDS: LIOTHYRONINE 25 MCG TABLET PO SCH (09:30)
[2019-07-25] MEDS: amLODIPine 10 MG TABLET PO SCH (09:30)
[2019-07-25] MEDS: POTASSIUM CHLORIDE RIDER 10 MEQ in PREMIX 1 EACH IV PRN (09:36)
[2019-07-25] MEDS: MULTIVITAMIN LIQUID (CENTRUM) 60 ML BOTTLE PO SCH (10:20)
[2019-07-25] MEDS: APIXABAN 5 MG TABLET PO SCH ×2 (10:39→21:07)
[2019-07-25] MEDS: FUROSEMIDE 40 MG/4 ML VIAL IV SCH ×2 (14:13→22:41)
[2019-07-25] MEDS: INSULIN GLARGINE 100 UNIT/ML SUBCUT SCH (21:08)
[2019-07-26 06:59] LABS: Basophils # 0.1 10*3/uL (0.0-0.2); Basophils % 0.3 % (0.0-0.8); Eosinophils # 0.2 10*3/uL (0.0-0.87); Hematocrit 41.5 VOL% (42.0-52.0); Hemoglobin 13.1 GM/DL (14.0-18.0); Immature Granulocytes % 3.7 %; Immature Granulocytes Absolute 0.67 #; Lymphocytes % 5.3 % (21.2-54.2); Mean Corpuscular HGB Conc 31.6 GM/DL (32-36); Mean Corpuscular Volume 97.2 FL (87-102); Mean Platelet Volume 10.4 FL (9.6-12.0); Monocytes % 11.1 % (1.7-12.7); Neutrophils % 78.6 % (38.7-73.9); Platelet Count 336 T/CUMM (130-400); Red Blood Count 4.27 MC/CUMM (3.8-5.5); Red Cell Distribution Width 14.8 % (9.3-17.3); White Blood Count 18.2 T/CUMM (4-12)
[2019-07-26 07:11] LABS: Calcium 8.9 MG/DL (8.5-10.1); Osmolality,Calculated 293.4 MOS/KG (273-304)
[2019-07-26 07:21] LABS: Eosinophils 2 % (0-10); Hypochromasia 1+; Lymphocytes 9 % (20-55); Platelet Estimate Adequate; Segmented Neutrophils 83 % (50-85); Total Cells Counted 100
[2019-07-26] MEDS: DORNASE ALFA 2.5 MG/2.5 ML VIAL RESP TX SCH ×2 (07:52→23:40)
[2019-07-26] MEDS: POTASSIUM CHLORIDE 20 MEQ/15 ML UDCUP PO SCH ×2 (09:13→22:45)
[2019-07-26] MEDS: INSULIN LISPRO 100 UNIT/ML SUBCUT SCH ×3 (09:13→17:35)
[2019-07-26] MEDS: SPIRONOLACTONE 25 MG TABLET PO SCH (09:14)
[2019-07-26] MEDS: PANTOPRAZOLE 40 MG TABLET PO SCH (09:14)
[2019-07-26] MEDS: metOLazone 5 MG TABLET PO SCH (09:14)
[2019-07-26] MEDS: SULFAMETHOX/TRIMETHOPRIM 800-160 MG TABLET PO SCH ×2 (09:14→22:44)
[2019-07-26] MEDS: ATORVASTATIN 20 MG TABLET PO SCH (09:14)
[2019-07-26] MEDS: LISINOPRIL 20 MG TABLET PO SCH (09:14)
[2019-07-26] MEDS: FENOFIBRATE 145 MG TABLET PO SCH (09:14)
[2019-07-26] MEDS: GLIMEPIRIDE 4 MG TABLET PO SCH ×2 (09:14→22:43)
[2019-07-26] MEDS: carvediloL 25 MG TABLET PO SCH ×2 (09:15→22:43)
[2019-07-26] MEDS: metFORMIN 500 MG TABLET PO SCH ×2 (09:15→18:21)
[2019-07-26] MEDS: LIOTHYRONINE 25 MCG TABLET PO SCH (09:15)
[2019-07-26] MEDS: APIXABAN 5 MG TABLET PO SCH ×2 (09:15→22:43)
[2019-07-26] MEDS: LEVOTHYROXINE 100 MCG TABLET PO SCH (09:15)
[2019-07-26] MEDS: MULTIVITAMIN LIQUID (CENTRUM) 60 ML BOTTLE PO SCH (09:15)
[2019-07-26] MEDS: amLODIPine 10 MG TABLET PO SCH (09:19)
[2019-07-26] MEDS: FUROSEMIDE 40 MG/4 ML VIAL IV SCH ×2 (13:15→23:07)
[2019-07-26] MEDS: AMIODARONE INJ 450 MG in DEXTROSE 5% 241 ML IV SCH (14:11)
[2019-07-26] MEDS ORDERED: TUBERCULIN SKIN TEST 0.1 ML SYRINGE INTRADERM ONE (15:38)
[2019-07-27] MEDS: INSULIN LISPRO 100 UNIT/ML SUBCUT SCH ×3 (00:59→11:55)
[2019-07-27] MEDS: AMIODARONE INJ 450 MG in DEXTROSE 5% 241 ML IV SCH ×2 (01:00→05:47)
[2019-07-27] MEDS: INSULIN GLARGINE 100 UNIT/ML SUBCUT SCH (04:36)
[2019-07-27 05:43] LABS: Basophils # 0.1 10*3/uL (0.0-0.2); Basophils % 0.4 % (0.0-0.8); Eosinophils # 0.2 10*3/uL (0.0-0.87); Eosinophils % 1.1 % (0.00-10.9); Hematocrit 42.2 VOL% (42.0-52.0); Hemoglobin 13.1 GM/DL (14.0-18.0); Immature Granulocytes % 5.5 %; Immature Granulocytes Absolute 0.78 #; Lymphocytes % 6.8 % (21.2-54.2); Mean Corpuscular Volume 97.5 FL (87-102); Mean Platelet Volume 10.6 FL (9.6-12.0); Monocytes % 12.1 % (1.7-12.7); Neutrophils % 74.1 % (38.7-73.9); Platelet Count 370 T/CUMM (130-400); Red Blood Count 4.33 MC/CUMM (3.8-5.5); Red Cell Distribution Width 14.8 % (9.3-17.3); White Blood Count 14.1 T/CUMM (4-12)
[2019-07-27 06:16] LABS: Calcium 9.3 MG/DL (8.5-10.1)
[2019-07-27 06:37] LABS: Prealbumin 33.7 MG/DL (20-40)
[2019-07-27 06:45] LABS: Hypochromasia Slight; Lymphocytes 8 % (20-55); Platelet Estimate Normal; Segmented Neutrophils 88 % (50-85); Total Cells Counted 100
[2019-07-27] MEDS: DORNASE ALFA 2.5 MG/2.5 ML VIAL RESP TX SCH (07:44)
[2019-07-27] MEDS: SPIRONOLACTONE 25 MG TABLET PO SCH (09:13)
[2019-07-27] MEDS: SULFAMETHOX/TRIMETHOPRIM 800-160 MG TABLET PO SCH (09:13)
[2019-07-27] MEDS: metFORMIN 500 MG TABLET PO SCH (09:13)
[2019-07-27] MEDS: GLIMEPIRIDE 4 MG TABLET PO SCH (09:13)
[2019-07-27] MEDS: LIOTHYRONINE 25 MCG TABLET PO SCH (09:14)
[2019-07-27] MEDS: MULTIVITAMIN LIQUID (CENTRUM) 60 ML BOTTLE PO SCH (09:14)
[2019-07-27] MEDS: carvediloL 25 MG TABLET PO SCH (09:14)
[2019-07-27] MEDS: ATORVASTATIN 20 MG TABLET PO SCH (09:14)
[2019-07-27] MEDS: APIXABAN 5 MG TABLET PO SCH (09:14)
[2019-07-27] MEDS: amLODIPine 10 MG TABLET PO SCH (09:14)
[2019-07-27] MEDS: POTASSIUM CHLORIDE 20 MEQ/15 ML UDCUP PO SCH (09:15)
[2019-07-27] MEDS: LISINOPRIL 20 MG TABLET PO SCH (09:15)
[2019-07-27] MEDS: PANTOPRAZOLE 40 MG TABLET PO SCH (09:15)
[2019-07-27] MEDS: FENOFIBRATE 145 MG TABLET PO SCH (09:16)
[2019-07-27] MEDS: metOLazone 5 MG TABLET PO SCH (09:16)
[2019-07-27] MEDS: LEVOTHYROXINE 100 MCG TABLET PO SCH (09:16)
[2019-07-27] MEDS: FUROSEMIDE 40 MG/4 ML VIAL IV SCH (11:54)
[2019-07-27] MEDS ORDERED: MEPERIDINE 25 MG/1 ML VIAL ONE (11:56)
[2019-07-27] MEDS ORDERED: MIDAZOLAM 10 MG/2 ML VIAL ONE (11:56)
[2019-07-27] MEDS ORDERED: AMIODARONE 200 MG TABLET PO SCH (13:00)
[2019-07-27 13:34] VITALS: BP 121/89
== END 2019-07-27 14:39 | DRG 207 ==
LOC: EDUNIT# → EDBD → N.ED 09:26 → SUATTDRO 10:32 → N.EDINP 10:52 → N.ICU 11:23 → N.TELES 07-24 17:54
PROVIDERS: ADMIT Internal Medicine; ATTEND Internal Medicine